=== PATIENT | female | born 1995 | race African-American/Black ===

== ENCOUNTER 2017-10-17 21:51 | Emergency (ER) | payer OTHER ==
[~2017-10-17] VITALS: Ht 160 cm; Wt 71.1 kg
[~2017-10-17 21:51] MED LIST: BACTRIM,SEPT1 TABLET PO; CITRATE OF MAG296 ML PO; NO HOME MEDS; NORCO 5/3251 TABLET PO
[2017-10-18 01:05] LABS: D-DIMER ELISA < 150.00 ng/mLDDU (<230)
[2017-10-18 01:28] VITALS: BP 121/65
== END 2017-10-18 01:33 | disposition home or self-care (01) ==
LOC: EME 21:51
PROVIDERS: Emergency Medicine
DX: R07.89 Other chest pain (principal)
CPT/HCPCS: 71046; 85379; 93005; 99281; 99284